=== PATIENT | male | born 1980 | race Caucasian/White ===

== ENCOUNTER 2021-07-04 18:52 | Emergency (ER) | payer OTHER ==
[~2021-07-04 18:52] MED LIST: ATIVAN1 MG PO; BACLOFEN 10MG T10 MG PO; BUSPIRONE HCL15 MG PO; CIPRO500 MG PO; FLEXERIL10 MG PO; IBUPROFEN800 MG PO; MEDROL 4MG DOSEP4 MG PO; NEURONTIN300 MG PO; OXY-IR 5MG5 MG PO; QUETIAPINE FUMA25 MG PO; ROBAXIN750 MG PO
[2021-07-04 19:29] LABS: BASOPHIL 0.3 % (0-2); EOSINOPHIL 6.4 % (0-5); HCT 41.6 % (42.0-52.0); HGB 14.1 g/dl (13.2-18.0); LYMPHOCYTE 29.5 % (15-48); MCH 30.7 pg (25.0-31.0); MCHC 33.9 g/dL (32.0-36.0); MCV 90.6 fL (78.0-100.0); MPV 9.5 fL (6.0-9.5); NEUTROPHIL 56.5 % (41-80); NRBC 0; PLT 292 K/uL (150-400); RBC 4.59 M/uL (4.70-6.00); RDW 12.1 % (11.5-14.0); WBC 10.6 K/uL (4.0-10.5)
[2021-07-04 19:38] LABS: ALBUMIN 4.4 g/dL (3.4-5.0); BILIRUBIN - TOTAL 0.3 mg/dL (0.2-1.0); BUN/CREAT RATIO (CALC) 16.9 RATIO; CREATININE 0.89 mg/dL (0.67-1.17); GLOBULIN (CALCULATION) 4.1 g/dL; TOTAL PROTEIN 8.5 g/dL (6.4-8.2)
[2021-07-04 19:48] LABS: INR 1.22 (0.9-1.2); PROTHROMBIN TIME 14.8 SECONDS (11.8-13.4); PTT 33.1 SECONDS (24.4-34.7)
== END 2021-07-04 21:20 | disposition home or self-care (01) ==
LOC: FER 18:52
PROVIDERS: Internal Medicine
DX: F41.9 Anxiety disorder, unspecified (principal); R06.02 Shortness of breath
CPT/HCPCS: 36415; 71045; 71275; 80053; 84484; 85025; 85610; 85730; 93005; Q9967

== ENCOUNTER 2021-07-14 14:40 | Emergency (ER) | payer OTHER | END 2021-07-14 17:38 | disposition home or self-care (01) | LOC: FER 14:40 | DX: M25.562 Pain in left knee (principal); M79.662 Pain in left lower leg; G89.29 Other chronic pain; F17.210 Nicotine dependence, cigarettes, uncomplicated | CPT/HCPCS: 93971 ==

== ENCOUNTER 2021-10-30 13:02 | Emergency (ER) | payer OTHER ==
[2021-10-30 13:55] LABS: BASOPHIL 0.4 % (0-2); EOSINOPHIL 9.3 % (0-5); HCT 39.4 % (42.0-52.0); HGB 13.2 g/dl (13.2-18.0); LYMPHOCYTE 25.8 % (15-48); MCH 30.2 pg (25.0-31.0); MCHC 33.5 g/dL (32.0-36.0); MCV 90.2 fL (78.0-100.0); MONOCYTE 7.4 % (0-12); MPV 9.3 fL (6.0-9.5); NRBC 0; PLT 291 K/uL (150-400); RBC 4.37 M/uL (4.70-6.00); RDW 12.5 % (11.5-14.0); WBC 8.5 K/uL (4.0-10.5)
[2021-10-30 14:22] LABS: ALBUMIN 3.7 g/dL (3.4-5.0); BILIRUBIN - TOTAL 0.3 mg/dL (0.2-1.0); BUN/CREAT RATIO (CALC) 14.5 RATIO; CREATININE 0.69 mg/dL (0.67-1.17); GLOBULIN (CALCULATION) 3.2 g/dL; POTASSIUM 3.5 mmol/L (3.5-5.1); TOTAL PROTEIN 6.9 g/dL (6.4-8.2)
[2021-10-30 15:23] LABS: BILIRUBIN NEGATIVE (NEGATIVE); BLOOD NEGATIVE Ery/uL (NEGATIVE); CLARITY CLEAR (CLEAR); COLOR YELLOW (YELLOW); GLUCOSE (U) NORMAL (NORMAL); LEUKOCYTES NEGATIVE Leu/uL (NEGATIVE); NITRITE NEGATIVE (NEGATIVE); PROTEIN NEGATIVE (NEGATIVE); UROBILINOGEN 0.2 mg/dL (0.2-1.0); pH 6.5 (5.0-9.0)
[2021-10-30 15:31] LABS: AMPHETAMINES POSITIVE (NEGATIVE); BARBITURATES NEGATIVE (NEGATIVE); ECSTASY (MDMA) NEGATIVE (NEGATIVE); MARIJUANA (THC) NEGATIVE (NEGATIVE); METHADONE NEGATIVE (NEGATIVE); OPIATES NEGATIVE (NEGATIVE); OXYCODONE NEGATIVE (NEGATIVE)
== END 2021-10-30 17:08 | disposition home or self-care (01) ==
LOC: FER 13:02
PROVIDERS: Nurse Practitioner Family
DX: R07.89 Other chest pain (principal); F17.210 Nicotine dependence, cigarettes, uncomplicated; Z88.5 Allergy status to narcotic agent; Z28.311 Partially vaccinated for COVID-19
CPT/HCPCS: 36415; 71045; 80053; 80305; 81003; 84484; 85025; 85379; 93005